=== PATIENT | male | born 1970 | race African-American/Black ===

== ENCOUNTER 2016-12-06 13:30 | Emergency (ER) | payer MEDICAID ==
[~2016-12-06] VITALS: Ht 172.7 cm; Wt 79.0 kg
[2016-12-06] MEDS ORDERED: KETOROLAC 60MG/2ML VIAL IM ONE (18:45)
[2016-12-06 19:30] VITALS: BP 146/89
== END 2016-12-06 19:56 | disposition home or self-care (01) ==
LOC: ER 13:30
DX: H66.92 Otitis media, unspecified, left ear (principal); J02.9 Acute pharyngitis, unspecified; F17.200 Nicotine dependence, unspecified, uncomplicated; I10 Essential (primary) hypertension
CPT/HCPCS: 96372; 99283; J1885; Z7610

== ENCOUNTER 2022-03-11 19:21 | Emergency (ER) | payer MEDICAID ==
[~2022-03-11] VITALS: Ht 170.2 cm; Wt 85.0 kg
[2022-03-11 19:28] VITALS: BP 187/122
[2022-03-11 22:07] LABS: BASOPHILS % 0.2 % (0.0-2.0); EOSINOPHILS % 1.7 % (0.0-5.0); HEMATOCRIT. 36.2 % (42.0-52.0); HEMOGLOBIN. 12.5 g/dL (14.0-18.0); LYMPHOCYTES % 27.6 % (20.0-50.0); MEAN CORPUSCULAR VOLUME 90.2 fL (80.0-94.0); MEAN PLATELET VOLUME 8.1 fl (7.4-10.4); MONOCYTES % 5.8 % (2.0-8.0); NEUTROPHILS % 64.7 % (40.0-76.0); PLATELET 220 x1000/uL (130-400); RED BLOOD CELL COUNT 4.02 mill/uL (4.7-6.1); RED CELL DISTRIBUTION WIDTH 13.2 % (11.6-14.6)
[2022-03-11 22:08] LABS: CHLORIDE 108 mEq/L (98-107)
[2022-03-11 22:12] LABS: PROTHROMBIN TIME 10.9 sec (9.6-11.0)
== END 2022-03-12 01:15 | disposition home or self-care (01) ==
LOC: ER 19:21
DX: R07.89 Other chest pain (principal); I10 Essential (primary) hypertension
CPT/HCPCS: 36415; 71045; 80053; 84484; 85025; 93005; 99285

== ENCOUNTER 2022-04-06 23:34 | Inpatient (IN) | payer MEDICAID, OTHER ==
[~2022-04-06] VITALS: Ht 170.2 cm; Wt 78.9 kg
[2022-04-07 01:04] LABS: BASOPHILS % 0.3 % (0.0-2.0); EOSINOPHILS % 0.8 % (0.0-5.0); HEMATOCRIT. 39.2 % (42.0-52.0); HEMOGLOBIN. 13.4 g/dL (14.0-18.0); LYMPHOCYTES % 31.1 % (20.0-50.0); MEAN CORPUSCULAR HEMOGLOBIN 30.9 pg (28.0-32.0); MEAN CORPUSCULAR VOLUME 90.1 fL (80.0-94.0); MEAN PLATELET VOLUME 8.1 fl (7.4-10.4); MONOCYTES % 6.1 % (2.0-8.0); NEUTROPHILS % 61.7 % (40.0-76.0); PLATELET 239 x1000/uL (130-400); RED BLOOD CELL COUNT 4.35 mill/uL (4.7-6.1); RED CELL DISTRIBUTION WIDTH 13.2 % (11.6-14.6)
[2022-04-07 01:10] LABS: CHLORIDE 99 mEq/L (98-107)
[2022-04-07 01:11] LABS: INR 1.1; PROTHROMBIN TIME 11.5 sec (9.6-11.0)
[2022-04-07 01:19] LABS: ETHANOL BLOOD < 10 mg/dL
[2022-04-07 01:51] LABS: *AMPHETAMINES SCREEN URINE NEGATIVE (NEGATIVE); *BARBITURATES SCREEN URINE NEGATIVE (NEGATIVE); *BENZODIAZEPINES SCREEN URINE NEGATIVE (NEGATIVE); *COCAINE SCREEN URINE NEGATIVE (NEGATIVE); CANNABINOID URINE SCREEN NEGATIVE (NEGATIVE); METHADONE URINE SCREEN NEGATIVE (NEGATIVE); OPIATES URINE SCREEN NEGATIVE (NEGATIVE); PHENCYCLIDINE URINE SCREEN NEGATIVE (NEGATIVE)
[2022-04-07] MEDS ORDERED: ASPIRIN 325MG EC TABLET PO ONE (02:45)
[2022-04-07 18:51] VITALS: BP 125/81
[2022-04-07] MEDS ORDERED: POTASSIUM CHLORIDE 20MEQ TABLET SR PO NR (19:00)
[2022-04-07] MEDS ORDERED: LORAZEPAM 2MG/ML CPJ IV NR (19:30)
[2022-04-07 20:00] VITALS: BP 121/94
[2022-04-07 20:28] VITALS: BP 121/94
[2022-04-07] MEDS ORDERED: AMLO10TA80 PO (23:09)
[2022-04-07] MEDS ORDERED: LISI40TA13 PO (23:09)
[2022-04-07] MEDS ORDERED: ASPI-1497 PO (23:09)
[2022-04-07] MEDS ORDERED: ATOR-2 PO (23:09)
[2022-04-07] MEDS ORDERED: CHLO25TA2 PO (23:12)
[2022-04-08] VITALS: BP 125/88
[2022-04-08 04:00] VITALS: BP 116/89
[2022-04-08 07:19] LABS: HEMATOCRIT 39.4 % (42.0-52.0); HEMOGLOBIN 13.3 g/dL (14.0-18.0); MEAN CORPUSCULAR HEMOGLOBIN 30.9 pg (28.0-32.0); MEAN CORPUSCULAR VOLUME 91.2 fL (80.0-94.0); PLATELET 233 x1000/uL (130-400); RED BLOOD CELL COUNT 4.32 mill/uL (4.7-6.1); RED CELL DISTRIBUTION WIDTH 13.1 % (11.6-14.6)
[2022-04-08 07:20] LABS: CHLORIDE 102 mEq/L (98-107)
[2022-04-08] MEDS ORDERED: LORAZEPAM 2MG/ML CPJ IV NR (07:30)
[2022-04-08 08:00] VITALS: BP 133/99
[2022-04-08] MEDS: ASPIRIN 81MG EC TABLET PO SCH (09:00)
[2022-04-08] MEDS ORDERED: ASPIRIN 81MG TABLET PO SCH (09:00)
[2022-04-08] MEDS: LISINOPRIL 40MG TABLET PO SCH (10:39)
[2022-04-08] MEDS: PANTOPRAZOLE SODIUM 40 MG/VIAL IV SCH (10:40)
[2022-04-08] MEDS: AMLODIPINE 10MG TABLET PO SCH (10:40)
[2022-04-08] MEDS: ENOXAPARIN 40MG/0.4ML SYR SUBCUT SCH ×2 (10:41→11:50)
[2022-04-08] MEDS: CLOPIDOGREL 75MG TABLET PO SCH (11:49)
[2022-04-08] MEDS: CHLORTHALIDONE 25MG TABLET PO SCH (11:49)
[2022-04-08 12:00] VITALS: BP_SYST 115; BP_SYST 130; BP_DIAS 72; BP_DIAS 91
[2022-04-08 16:00] VITALS: BP 130/72
[2022-04-08 20:00] VITALS: BP 109/78
[2022-04-08] MEDS ORDERED: ATORVASTATIN CALCIUM 40MG TABLET PO SCH (21:00)
[2022-04-09] MEDS ORDERED: AMLO10TA80 PO (00:03)
[2022-04-09] MEDS ORDERED: CLOP75TA15 PO (00:03)
[2022-04-09] MEDS ORDERED: ASPI-1497 PO (00:03)
[2022-04-09] MEDS ORDERED: LISI40TA13 PO (00:03)
[2022-04-09] MEDS ORDERED: ATOR-2 PO (00:03)
[2022-04-09] MEDS ORDERED: CHLO25TA2 PO (00:03)
[2022-04-09 00:45] VITALS: BP 106/63
[2022-04-09 04:30] VITALS: BP 96/69
[2022-04-09 08:00] VITALS: BP 104/74
[2022-04-09] MEDS: CHLORTHALIDONE 25MG TABLET PO SCH (08:55)
[2022-04-09] MEDS: ENOXAPARIN 40MG/0.4ML SYR SUBCUT SCH (08:55)
[2022-04-09] MEDS: CLOPIDOGREL 75MG TABLET PO SCH (08:55)
[2022-04-09] MEDS: ASPIRIN 81MG EC TABLET PO SCH (08:55)
[2022-04-09] MEDS: LISINOPRIL 40MG TABLET PO SCH (08:56)
[2022-04-09] MEDS: PANTOPRAZOLE SODIUM 40 MG/VIAL IV SCH (08:56)
[2022-04-09] MEDS: AMLODIPINE 10MG TABLET PO SCH (08:56)
[2022-04-09 12:00] VITALS: BP 131/85
[2022-04-09 12:17] VITALS: BP 131/85
[2022-04-09] MEDS ORDERED: FAMOTIDINE 20MG TABLET PO SCH (21:00)
== END 2022-04-09 15:15 | disposition home or self-care (01) | DRG 45 ==
LOC: ER 23:34 → MICUSO 04-07 03:25 → 7EST 04-07 18:38
PROVIDERS: ADMIT Internal Medicine; ATTEND Internal Medicine
DX: I63.9 Cerebral infarction, unspecified (principal); N17.9 Acute kidney failure, unspecified; E78.5 Hyperlipidemia, unspecified; I16.0 Hypertensive urgency; R27.0 Ataxia, unspecified; I10 Essential (primary) hypertension; Z79.82 Long term (current) use of aspirin; R13.10 Dysphagia, unspecified
CPT/HCPCS: 36415; 70544; 70547; 70551; 71045; 80048; 80053; 80061; 80305; 80320; 83036; 83880; 84484; 85025; 85027; 92610; 93005; 97162; 97166; 99285; C9113; J1650; J2060; G0480

== ENCOUNTER 2022-08-14 18:28 | Emergency (ER) | payer MEDICAID, OTHER ==
[~2022-08-14] VITALS: Ht 177.8 cm; Wt 84.0 kg
[~2022-08-14 18:28] MED LIST: AMLO10TA80 PO; ASPI-1497 PO; ATOR-2 PO; CHLO25TA2 PO; CLOP75TA15 PO; LISI40TA13 PO
[2022-08-14 18:31] VITALS: BP 182/123; PULSE 98; RESP 18; TEMP 97.4; O2SAT 98
[2022-08-14] MEDS ORDERED: HYDRALAZINE 20MG/ML VIAL IV ONE (19:15)
[2022-08-14 19:30] LABS: CHLORIDE 103 mEq/L (98-107)
[2022-08-14 19:50] LABS: BASOPHILS % 0.2 % (0.0-2.0); EOSINOPHILS % 0.3 % (0.0-5.0); HEMATOCRIT. 35.2 % (42.0-52.0); HEMOGLOBIN. 12.1 g/dL (14.0-18.0); LYMPHOCYTES % 21.7 % (20.0-50.0); MEAN CORPUSCULAR HEMOGLOBIN 32.5 pg (28.0-32.0); MEAN CORPUSCULAR VOLUME 94.8 fL (80.0-94.0); MEAN PLATELET VOLUME 7.7 fl (7.4-10.4); NEUTROPHILS % 70.8 % (40.0-76.0); PLATELET 225 x1000/uL (130-400); RED BLOOD CELL COUNT 3.71 mill/uL (4.7-6.1)
[2022-08-14 19:54] LABS: PARTIAL THROMBOPLASTIN TIME 28.6 sec (23.4-31.0); PROTHROMBIN TIME 10.9 sec (9.6-11.0)
== END 2022-08-14 21:57 | disposition left against medical advice (07) ==
LOC: ER 18:28 → CANBEDREQ 08-15 01:41
DX: R47.81 Slurred speech (principal); I10 Essential (primary) hypertension; Z86.73 Personal history of transient ischemic attack (TIA), and cerebral infarction without residual deficits; Z79.899 Other long term (current) drug therapy
CPT/HCPCS: 36415; 71045; 80053; 83880; 84484; 85025; 93005; 99285